=== PATIENT | male | born 1965 | race Hispanic/Latino ===

== ENCOUNTER 2023-09-10 11:57 | Emergency (ER) | payer SELFPAY ==
[2023-09-10 12:02] VITALS: BP 129/94
--- NOTE | 2023-09-10 13:34 | ED.GENMED ---
History of Present Illness
General
Chief Complaint: Musculo-Skeletal Complaint
Source: patient
Time Seen by Provider: 09/10/23 13:02
History of Present Illness
History of Present Illness:
57-year-old male presenting emergency department for evaluation after he injured his left foot/ankle about a week ago while ambulating now noting continued pain and swelling to the foot and ankle. Patient states pain seems to be around the second
and fourth metatarsal and worse while ambulating. Denies any previous history of injury or surgery. No other injuries were sustained in the fall.
Past History
Past History
ED Past Medical History: GERD
ED Past Surgical History: Orthopedic
Social History
Tobacco: Non-smoker
Alcohol: Daily
Drug: None
Personal:
Living: with family
Employment: Employed
Review of Systems
Review of Systems
All Other Systems: ROS reviewed and negative except as documented in HPI and ROS
Phy Exam
Physical Exam
Physical Exam:
GENERAL: Alert , in no apparent distress
EYE: conjunctiva clear
Head: Normocephalic atraumatic
NECK: Supple,
ENT: mmm.
LUNGS: no acute respiratory distress
NEUROLOGICAL: Alert and oriented
SKIN: Warm and dry, skin intact.
MUSCULOSKELETAL: Left lower extremity: Soft tissue swelling along the dorsal aspect of the foot extending towards the distal ankle. There is tenderness over the distal second and third metatarsals but without any breaks in the skin. Extremities
otherwise warm and well-perfused and neurovascularly intact.
PSYCH: Normal and appropriate interaction.
Scores
Heart Failure Risk
Heart Failure Risk Score: Not Applicable
Heart Score for Chest Pain Patients
STEMI patient?: Not applicable
Withdrawal Assessment of Alcohol
Withdrawal Assessment Completed?: Not applicable
Course
Orders/Labs/Results
Orders:
Orders
09/10/23 12:05
CR Ankle - Left Min 3 Views Urgent
Comment:
Reason For Exam: pain/swelling
09/10/23 13:05
CR Foot - Left Min 3 Views Urgent
Comment:
Reason For Exam: ? injury to 2nd/3rd metatarsal
09/10/23 13:33
Crutches-Treatment ONCE
Ortho Boot Left- Treatment ONCE
Short or tall?: Short
Vital Signs
Initial and Last Documented VS:
Initial Vital Signs
Temp Pulse Resp BP Pulse Ox
98.4 F 77 20 129/94 96
09/10/23 12:02 09/10/23 12:02 09/10/23 12:02 09/10/23 12:02 09/10/23 12:02
Last Documented Vital Signs
Temp Pulse Resp BP Pulse Ox
98.4 F 77 20 129/94 96
09/10/23 12:02 09/10/23 12:02 09/10/23 12:02 09/10/23 12:02 09/10/23 12:02
MDM/Problems Addressed
Differential Diagnosis Includes:
Sprain, contusion, fracture
MDM/Problems Addressed:
57-year-old male present emergency department for evaluation of foot/ankle injury from 1 week ago. Continued pain and swelling to come to the ER today. X-ray of the foot and ankle was ordered and shows a fracture of the second and third
metatarsal. Patient be placed in orthopedic boot as well as crutches. Patient does not currently have any insurance so he was provided with information for outpatient medical clinic. Advised patient contact the clinic for an appointment as soon
as possible.
*Radiology
Radiology exam reviewed: preliminary read by ED provider (Fracture of the second and third metatarsals)
*Pulse Oximetry
Patient hypoxic: no
*Critical Care Note
Total Time (30-74mins, 75-104mins- exclusive of procedures): Not Applicable
ED Attending Note
-
Portions of this chart may have been created with voice recognition software.� Occasional wrong word or��sound alike� substitutions may have occurred due to the inherent limitations of voice recognition software.
Discharge Plan
Departure
Patient Disposition: Home (Routine Discharge)
Date of Disposition: 09/10/23
Time of Disposition: 13:34
Patient with high blood pressure during this ER visit?: No
Discharge Problem:
Closed fracture of second metatarsal bone of left foot, Fracture of third metatarsal bone of left foot
Instructions: Foot Fracture (DC)
Prescriptions:
No Action
omeprazole 40 MG capsule,delayed release(DR/EC)
40 mg PO BID Qty: 60 0RF
cyclobenzaprine 10 MG tablet
10 mg PO TIDPRN PRN (Reason: pain) Qty: 12 0RF
Referrals:
[facility] [Outside] (Please call for an appointment NIL[facility])
Sander Nicole DO [Family Provider] -
Interventions
Interventions:
*Risk Screen - Suicide Last Done: 09/10/23 12:02
*General Assessment Last Done: 09/10/23 12:02
*Neglect/Abuse Screening Last Done: 09/10/23 12:02
*Nursing Disposition Last Done: 09/10/23 13:53
ED-Musculoskeletal Assessment Last Done: 09/10/23 12:18
Discharge Date and Time
Discharge Date/Time: 09/10/23 13:53
Print Language: ROMANIAN
== END 2023-09-10 13:53 | disposition home or self-care (01) ==
LOC: EMR 11:57
PROVIDERS: EMERGENCY PHYSICIAN Emergency Medicine; FAMILY PHYSICIAN Family Medicine
DX: S92.322A Displaced fracture of second metatarsal bone, left foot, initial encounter for closed fracture (principal); S92.332A Displaced fracture of third metatarsal bone, left foot, initial encounter for closed fracture; X58.XXXA Exposure to other specified factors, initial encounter; K21.9 Gastro-esophageal reflux disease without esophagitis
CPT/HCPCS: 99283; 73610; 73630

== ENCOUNTER 2023-09-24 20:35 | Inpatient (IN) | payer OTHER, SELFPAY ==
[2023-09-24] VITALS (11 sets, daily range): BP systolic 128–162; BP diastolic 93–110; BMI 27.9
[2023-09-24 14:38] LABS: % Basophils 1.8 % (0-2); % Eosinophils 0.2 % (0-6); % Immature Granulocytes 0.4 % (0-0.5); % Lymphocytes 27.6 % (20.5-51.1); % Monocytes 16.4 % (1.7-9.3); % Neutrophils 53.6 % (42.2-75.2); Absolute Basophils 0.2 10^3/uL (0-0.2); Absolute Lymphocytes 2.3 10^3/uL (1.2-3.4); Absolute Monocytes 1.4 10^3/uL (0.1-0.6); Absolute Neutrophils 4.4 10^3/uL (1.4-6.5); Hematocrit 39.1 % (39.0-52.0); Hemoglobin 13.6 g/dL (13.0-18.0); Mean Corp Hgb Conc. 34.8 g/dL (33.0-37.0); Mean Corpuscular Hgb 29.2 pg (27.0-31.0); Mean Corpuscular Volume 84.1 fL (80.0-94.0); Mean Platelet Volume 8.9 fL (7.4-10.4); Nucleated Red Blood Cells % 0 % (-); Platelet Count 280 10^3/uL (130-400); Red Blood Cell Count 4.65 10^6/uL (4.70-6.10); Red Cell Dist. Width 18.1 % (11.5-14.5); White Blood Cell Count 8.2 10^3/uL (4.8-10.8)
[2023-09-24 15:22] LABS: ALT (SGPT) 57 U/L (0-50); AST (SGOT) 230 U/L (17-59); Albumin 4.7 g/dl (3.5-5.0); Alcohol 34 mg/dl; Alkaline Phosphatase 198 U/L (38-126); Blood Urea Nitrogen 5 mg/dl (9-20); Calcium 9.7 mg/dl (8.4-10.2); Glucose 112 mg/dl (70-99); Total Protein 8.4 g/dl (6.3-8.2); eGFR > 60.00
[2023-09-24 15:51] LABS: Carbon Dioxide 21 mmol/L (22-30); Chloride 102 mmol/L (98-107); Potassium 4.3 mmol/L (3.5-5.1); Sodium 138 mmol/L (135-145)
--- NOTE | 2023-09-24 16:38 | ED.GENMED ---
History of Present Illness
General
Chief Complaint: Change in Mental Status
Time Seen by Provider: 09/24/23 16:05
History of Present Illness
History of Present Illness:
57-year-old male with history of chronic to the emergency department evaluation of increased confusion and lethargy for the past 1 to 2 weeks. Symptoms began after a family libertarian, patient states that he was intoxicated but conversant, feels as
though he may have been given substance to take and abruptly from that point on has been increasingly confused and fatigued. Patient drink least 12 beers and has not been sober for years.
Past History
Past History
ED Past Medical History: GERD
ED Past Surgical History: Orthopedic
Social History
Tobacco: Non-smoker
Alcohol: Daily
Drug: None
Personal:
Living: with family
Employment: Employed
Review of Systems
Review of Systems
Allergies reviewed?: Yes
All Other Systems: ROS reviewed and negative except as documented in HPI and ROS
Phy Exam
Physical Exam
Physical Exam:
GEN: Well appearing, NAD, WDWN
Eyes: PERRLA, EOMs intact, no scleral icterus
HENT: NCAT, oral mucosa moist
Lungs: CTAB, no wheezes, rales, rhonchi, normal chest wall excursion
Cardiac: Tachycardic and irregular, no murmur
Abdomen: S, NT, ND, NABS, no masses or hepatosplenomegaly
Neuro: Alert, follows commands, disoriented to time but oriented to self and place. Generalized extremity tremors noted at rest, no asterixis
MSK: No gross deformity or ecchymosis. No edema. No digital clubbing
Skin: No rashes, petechiae. Normal color, no pallor or jaundice.
Psych: Calm, cooperative, proper hygiene
Course
Orders/Labs/Results
Orders:
Orders
09/24/23 14:32
Alcohol Urgent
CMP [Comprehensive Metabolic Panel] Urgent
Complete Blood Count/With Diff Urgent
TSH Reflex To Free T4 Urgent
Comment: TSH REFLEX ADDED ON BY FLOOR 4:30PM 09-24-23
09/24/23 16:37
Add On- LAB Urgent
Tests Added?: tsh w/ reflex
Electrocardiogram (*1) Urgent
Reason for Study: Tachycardia
EKG- Treatment ONCE
09/24/23 16:44
Add On- LAB Urgent
Tests Added?: ammonia
09/24/23 17:43
Lactated Ringers [Lr] 1,000 ml IV BOLUS
Magnesium Sulfate 2 Gram/50 ml [Magnesium Sulfate] 2 gram in 50 ml IV NOW
Metoprolol [Lopressor] 5 mg IV NOW STA
09/24/23 17:58
Ammonia Urgent
09/24/23 18:11
CT Head W/o Iv Contrast Urgent
Comment:
Reason For Exam: confusion
09/24/23 19:25
FOLic ACID [Folvite] 1 mg PO NOW STA
09/24/23 19:54
Thiamine Injection 500 mg 0.9% Sodium Chloride 250 ml [Nss] 250 ml IV NOW
09/24/23 19:57
Lorazepam [Ativan] 2 mg IV NOW STA
09/24/23 20:26
Admit/Transfer Patient As Directed
Co-Sign Provider:
Level of Care: Inpatient admission
Assign to:: Telemetry
Physician / Group: willian
Diagnosis: alcohol withdrawal
Reason for Telemetry: Arrhythmia
Date to Stop Telemetry: 09/27/23
Time to Stop Telemetry: 11:00
Reason for Hospitalization: alcohol withdrawal
Expected length of stay greater than two midnights?: Yes
ELOS- Estimated Length of Stay in days: 2
I certify the patient meets the requirements for IP care: Yes
Code Status As Directed
Resuscitation Status: Full Code
09/24/23 20:29
Urine Drug Abuse Screen Urgent
09/27/23 11:00
DC Protocol for Telemetry ONCE
Abnormal Lab Results
09/24/23 09/24/23
14:32 17:58
RBC 4.65 L 10^6/uL
(4.70-6.10)
RDW 18.1 H %
(11.5-14.5)
Absolute Monos (auto) 1.4 H 10^3/uL
(0.1-0.6)
Monocytes % 16.4 H %
(1.7-9.3)
Carbon Dioxide 21 L mmol/L
(22-30)
BUN 5 L mg/dl
(9-20)
Creatinine 0.6 L mg/dL
(0.7-1.3)
Glucose 112 H mg/dl
(70-99)
AST 230 H U/L
(17-59)
ALT 57 H U/L
(0-50)
Alkaline Phosphatase 198 H U/L
(38-126)
Ammonia < 9 L umol/L
(9-30)
Total Protein 8.4 H g/dl
(6.3-8.2)
09/24/23 14:32
09/24/23 14:32
Vital Signs
Initial and Last Documented VS:
Initial Vital Signs
Temp Pulse Resp BP Pulse Ox
98.0 F 65 16 145/98 95
09/24/23 14:25 09/24/23 14:25 09/24/23 14:25 09/24/23 14:25 09/24/23 14:25
Last Documented Vital Signs
Temp Pulse Resp BP Pulse Ox
98.0 F 103 17 130/96 95
09/24/23 14:25 09/24/23 21:45 09/24/23 21:45 09/24/23 21:30 09/24/23 21:30
MDM/Problems Addressed
MDM/Problems Addressed:
Patient certainly presents with alcohol withdrawal however would not explain his persistent confusion and abnormal behavior. I suspect he is developing Warnicke's encephalopathy given his chronic alcohol misuse. He does not have obvious nystagmus
some of his wandering to be explained by alcohol withdrawal. Thus we will admit him to the hospital service for further evaluation and management. High-dose IV thiamine given in the emergency department
*Critical Care Note
Total Time (30-74mins, 75-104mins- exclusive of procedures): Not Applicable
ED Attending Note
-
Portions of this chart may have been created with voice recognition software.� Occasional wrong word or��sound alike� substitutions may have occurred due to the inherent limitations of voice recognition software.
Discharge Plan
Departure
Patient Disposition: Admit
Date of Disposition: 09/24/23
Time of Disposition: 19:59
Admit to: Med/Surg
Presentation/result/management discussed w/ accepting MD/DO: Hospitalist
Discharge Problem:
Acute encephalopathy, Chronic alcohol abuse
Interventions
Interventions:
*Risk Screen - Suicide Last Done: 09/24/23 17:43
*General Assessment Last Done: 09/24/23 14:25
*Neglect/Abuse Screening Last Done: 09/24/23 16:34
ED- Fall Risk Assessment Last Done: 09/24/23 16:33
*ED COVID-19 Vaccine History Last Done: 09/24/23 14:25
ED- Pulmonary Assessment Last Done: 09/24/23 17:44
ED- Neurological Assessment Last Done: 09/24/23 16:33
ED- Cardiac Assessment Last Done: 09/24/23 17:44
ED Swallowing Screen Last Done: 09/24/23 17:44
[2023-09-24 18:25] LABS: Ammonia < 9 umol/L (9-30)
[2023-09-24] MEDS: LOPRESSOR 5 MG IV (18:35)
[2023-09-24] MEDS: LR 1000 IV (18:36)
[2023-09-24] MEDS: MAGNESIUM SULFATE 50 IV (18:41)
[2023-09-24 19:19] LABS: TSH Reflex To Free T4 1.53 uIU/ml (0.47-4.68)
--- NOTE | 2023-09-24 20:29 | HPS.HSE ---
Family Physician
-
Family Physician: Sander Nicole
Chief Complaint
-
confusion
History of Present Illness
57-year-old [place]guill[place]-speaking male past medical history of alcohol use disorder, marijuana use upper GI bleeding secondary to peptic ulcer disease/duodenal ulcer/gastritis, marijuana use, presenting for increased confusion and lethargy for the past 1
to 2 weeks. History is obtained from patient's daughter who speaks Rwandan.
Patient's daughter states that patient is unreliable historian and does not tell the truth.
Patient normally drinks 24 beers per day which he last drank yesterday. He attended a democrat last week and he was caught by his brother smoking or drug. Patient refused to tell his family what drug he used although he does have a history of smoking
marijuana in the past. After the democrat family found him altered and confused in a different way from when he uses marijuana usually.
Patient is not having any nausea or vomiting or diarrhea or abdominal pain. He eats very minimally so that he can drink more alcohol. He has been very shaky, and anxious. Patient's states that she notices dark blood in the toilet after
patient has used the bathroom although patient is trying to hide this.
Patient was last admitted in 2013 at which time he had upper GI bleeding secondary to duodenal ulcer/peptic ulcer/gastritis on EGD. He never followed up with GI afterwards.
Medical History
Past Medical History
Past Medical History: Reports Other (alcohol use disorder, marijuana use upper GI bleeding secondary to peptic ulcer disease/duodenal ulcer/gastritis, marijuana use)
Past Surgical History: Reports Orthopedic
Social History
Tobacco: Non-smoker
Alcohol: Daily
Drug: Marijuana
Family History
Family History: Not pertinent
Allergies / Home Medications
Allergies reflects when Allergies were last updated in [facility].
Home Medications with original date entered in [facility]
Allergy/Medication List:
Allergies
Allergy/AdvReac Type Severity Reaction Status Date / Time
No Known Allergies Allergy Verified 09/24/23 14:28
Home Medications
No Meds [No Current Medications] 09/24/23
Review of Systems
-
History Source: Patient
A 12 point ROS was completed and negative except as noted: Yes
Constitutional: Reports No Symptoms
EENT: Reports No Symptoms
Respiratory: Reports No Symptoms
Cardiac: Reports No Symptoms
Abdomen/GI: Reports See HPI
: Reports No Symptoms
Musculoskeletal: Reports No Symptoms
Skin: Reports No Symptoms
Neurological: Reports No Symptoms
Endocrine: Reports No Symptoms
Hematologic/Lymphatic: Reports No Symptoms
Psych: Reports No Symptoms
Physical Exam
Vital Signs
Vital Signs
Temp Pulse Resp BP Pulse Ox
98.0 F 102 17 162/104 98
09/24/23 14:25 09/24/23 19:45 09/24/23 19:45 09/24/23 19:30 09/24/23 19:45
Physical Exam
General: Well Developed, Well Nourished and No Apparent Distress
HEENT: NormoCephalic, Moist mucous membranes and Atraumatic
Respiratory: Clear
Cardiac: S1/S2 and Regular Rhythm; No Murmur or Rub
GI: Soft, Non Tender, Non Distended and Normal Bowel Sounds; No Organomegaly
Rectal: Deferred by Provider
Musculoskeletal: No Clubbing, No Cyanosis and No Edema
Skin: No Rash
Neuro: Nonfocal/grossly intact
Laboratory Results
-
09/24/23 14:32
09/24/23 14:32
Laboratory Results
Total Bilirubin 1.0 mg/dl (0.2-1.3) 09/24/23 14:32
AST 230 U/L (17-59) H 09/24/23 14:32
ALT 57 U/L (0-50) H 09/24/23 14:32
Alkaline Phosphatase 198 U/L (38-126) H 09/24/23 14:32
Data Reviewed
-
Lab Data: Labs Reviewed by me
Old Records: Reviewed
Impression/Plan
-
IMPRESSION:
PLAN:
# Alcohol withdrawal/possible Wernicke's encephalopathy
# Alcohol use disorder
-CT head shows no evidence of intracranial abnormality
-Alcohol level 34
-Thiamine and folate
-IV fluids
-Alcohol withdrawal protocol
-Check UDS given recent drug use at democrat
# Dark stools likely upper GI bleeding secondary to gastric/duodenal ulcer/gastritis secondary to alcohol use
-Hemoglobin stable at 13.6
-Clear liquid diet
-IV Protonix 40 twice daily
-Last EGD/colonoscopy in 2013, patient due for repeat scoping this year as per GI note
-GI consulted
# Transaminitis secondary to alcohol use
-Continue to monitor
#Marijuana use
Full code
DVT prophylaxis�SCDs
Clear liquid diet
[2023-09-24] MEDS: ATIVAN 2 MG IV (20:41)
[2023-09-24] MEDS: FOLVITE 1 MG PO (20:41)
[2023-09-24] MEDS: THIAMINE INJECTION 255 MG IV (20:46)
[2023-09-25] MEDS: ATIVAN 1 MG PO ×4 (00:13→16:36)
--- NOTE | 2023-09-25 00:15 | PTCARENOTE ---
Addendum entered by Ramila Pina RN 09/25/23 07:32:
Patient's HR 100-120s, up to 140s-150s with ambulation. Tele monitor showing afib. QA TESTER made aware, 5mg IV lopressor ordered and given at 0209. EKG confirming afib with RVR, PVCs, and BBB. Cardiology cx also added for morning. Plan of care ongoing.
Original Note:
Received patient from ED via stretcher. Patient ambulated from stretcher to bed with assistance. Patient is primarily [place] speaking, daughter at bedside who speaks Hebrew to aid in translation. AAOx2, confused and forgetful. Bed alarm intact.
MSAS 6, PO ativan given per protocol. Oriented patient to room and placed call silver within reach.
[2023-09-25] MEDS: NSS 1000 IV ×3 (00:20→17:30)
[2023-09-25] MEDS: NSS (PRESERVATIVE FREE) 10 ML IV ×2 (00:20→07:58)
[2023-09-25] MEDS: PROTONIX IV 40 MG IV ×2 (00:20→07:58)
[2023-09-25] MEDS: LOPRESSOR 5 MG IV (02:09)
--- NOTE | 2023-09-25 02:18 | W.PN.UPDATE ---
Update Note
Progress Note Update
Nursing reporting patient in Afib RVR with no known history.
Plan:
- STAT EKG
- Metoprolol 5mg IV 1x now
- Cardiology consult
[2023-09-25 03:15] VITALS: BP 147/105
[2023-09-25 05:13] LABS: Amphetamines Negative (Negative); Barbiturates Negative (Negative); Benzodiazepines Positive (Negative); Buprenorphine Negative (Negative); Cocaine Negative (Negative); Marijuana Positive (Negative); Methadone Negative (Negative); Methamphetamines Negative (Negative); Opiates Negative (Negative); Phencyclidine Negative (Negative); Tricyclic Antidepressants Negative (Negative)
[2023-09-25 07:32] VITALS: BP 145/102
[2023-09-25 07:43] LABS: % Basophils 1.6 % (0-2); % Eosinophils 0.7 % (0-6); % Immature Granulocytes 0.3 % (0-0.5); % Lymphocytes 33.3 % (20.5-51.1); % Monocytes 17.8 % (1.7-9.3); % Neutrophils 46.3 % (42.2-75.2); Absolute Basophils 0.1 10^3/uL (0-0.2); Absolute Eosinophils 0.1 10^3/uL (0-0.7); Absolute Lymphocytes 2.4 10^3/uL (1.2-3.4); Absolute Monocytes 1.3 10^3/uL (0.1-0.6); Absolute Neutrophils 3.3 10^3/uL (1.4-6.5); Hematocrit 38.3 % (39.0-52.0); Hemoglobin 13.4 g/dL (13.0-18.0); Mean Corpuscular Hgb 29.5 pg (27.0-31.0); Mean Corpuscular Volume 84.2 fL (80.0-94.0); Mean Platelet Volume 9.4 fL (7.4-10.4); Nucleated Red Blood Cells % 0 % (-); Platelet Count 252 10^3/uL (130-400); Red Blood Cell Count 4.55 10^6/uL (4.70-6.10); Red Cell Dist. Width 17.3 % (11.5-14.5); White Blood Cell Count 7.1 10^3/uL (4.8-10.8)
[2023-09-25] MEDS: THIAMINE INJECTION 200 MG IV ×2 (07:57→16:36)
[2023-09-25] MEDS: FOLVITE 1 MG PO (07:57)
[2023-09-25] MEDS: FLUSH (NSS) 1 FLUSH IV ×2 (07:58→16:37)
[2023-09-25 08:19] LABS: ALT (SGPT) 46 U/L (0-50); AST (SGOT) 139 U/L (17-59); Albumin 4.1 g/dl (3.5-5.0); Alkaline Phosphatase 196 U/L (38-126); Blood Urea Nitrogen 5 mg/dl (9-20); Carbon Dioxide 22 mmol/L (22-30); Chloride 104 mmol/L (98-107); Estimated Creatinine Clearance > 125 ml/min; Glucose 111 mg/dl (70-99); Potassium 4.2 mmol/L (3.5-5.1); Sodium 134 mmol/L (135-145); Total Bilirubin 1.7 mg/dl (0.2-1.3); Total Protein 7.6 g/dl (6.3-8.2); eGFR > 60.00
[2023-09-25 08:32] LABS: Fentanyl, Urine Negative (Negative)
--- NOTE | 2023-09-25 08:33 | CON.CAR ---
Addendum entered and electronically signed by Rambo Davila DO 09/25/23 17:12:
I saw and evaluated the patient. I reviewed the resident�s note and agree with findings and plan as documented in the resident�s note.
Impression:
Atrial fibrillation with rapid ventricular response, new onset.
Alcohol use disorder with possible withdrawal
Change in mental status secondary to above
History of GI bleeding
Plan:
Rate control strategy for now with labetalol 25 mg twice a day. Monitor heart rate and blood pressure and titrate as necessary..
[id number] score of 1. Consideration for aspirin once improved from GI/alcohol standpoint.
Check echo to evaluate for structural heart disease.
GI evaluation ongoing. Continue supportive care.
Continue alcohol withdrawal protocol.
Continue telemetry.
Original Note:
Consultation
Consultation Request
Date/Time Consultation Requested: 09/25/23
Date/Time Consultation Performed: 09/25/23
Requesting Provider:
Performing Provider:
Reason for Consultation: Atrial Fibrillation
Medical History
-
Chief Complaint: Atrial Fibrillation,Alcohol Withdrawal
History of Present Illness:
This is a 57 year old male patient with PMH of alcohol use disorder, upper GI bleeding secondary to peptic ulcer disease/duodenal ulcer/gastritis who presented to the ER with altered mental status and lethargy for the past week. Previously in the ER
he was accompanied by his daughter who helped translate for the patient who is mainly Afghan-speaking which somewhat limited history. He states that he was at a democrat where he was partaking in usage of marijuana along with alcohol and later found
himself being woken up and found by his family. At that time and thereafter he denies any symptoms of vomiting, palpitations, chest pain, nausea or dizziness. He states that he drinks daily with around 12 beers a day which is in contrast with
history daughter gave in ER stating 24 beers a day. He denies ever being diagnosed with HTN. Patient does have shaking of hands at the time of this consultation.
Past Medical History
Past Medical History: Other (alcohol use disorder, marijuana use upper GI bleeding secondary to peptic ulcer disease/duodenal ulcer/gastritis, marijuana use)
Past Surgical History: Orthopedic
Social History
Tobacco: Non-Smoker
Alcohol: Daily
Drug: Marijuana
Personal:
Living: With Family
Family History
Family History: Reviewed & Not Pertinent
Allergies / Home Medications
Allergy/AdvReac Type Severity Reaction Status Date / Time
No Known Allergies Allergy Verified 09/24/23 14:28
�Medication �Instructions �Recorded �Confirmed �Type
No Meds [No Current Medications] 09/24/23 09/24/23 History
Review of Systems
-
Constitutional: No Symptoms
Cardiac: Chest Pain (none), Diaphoresis (none) and Palpitations (none)
Abdomen/GI: No Symptoms
Musculoskeletal: No Symptoms
Skin: No Symptoms
Endocrine: No Symptoms
Hematologic/Lymphatic: No Symptoms
Physical Exam
Vital Signs
Temp Pulse Resp BP Pulse Ox
98.8 F 102 20 147/105 95
09/25/23 03:15 09/25/23 03:15 09/25/23 03:15 09/25/23 03:15 09/25/23 08:00
Lab Results
09/25/23 07:03
09/25/23 07:03
Physical Exam
General: No Apparent Distress
HEENT: Normocephalic
Respiratory: Clear
Cardiac: S1/S2, Regular Rhythm and Other (tachy)
Impression / Plan
-
Impression:This is a 57 year old male patient with PMH of alcohol use disorder, upper GI bleeding secondary to peptic ulcer disease/duodenal ulcer/gastritis who presented to the ER with altered mental status and lethargy for the past week.
Assessment:
Alcohol use disorder
Hx of upper GI bleed duodenal ulcer, gastritis, Elizabeth-Cadet tear�EGD 2013
Hx of chronic marijuana use
Plan:
-Continue alcohol withdrawal protocol, IV fluids management
� EKG today: A-fib with RVR
� [id number] score 1, will hold off on anticoagulation with hx of GI bleed and patient's history of noncompliance, possible ASA treatment once stable
� Initiated labetalol 25 mg twice daily for hypertension
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
� Continue supportive care, appreciate GI consult
--- NOTE | 2023-09-25 08:58 | CON.GI ---
Medical History
Chief Complaint / HPI
Chief Complaint: Confusion
History of Present Illness:
57yo M with PMH of alcohol use disorder, upper GI bleeding secondary to peptic ulcer disease/duodenal ulcer/gastritis (2013) who presented with altered mental status and worsening confusion for the past week. History is somewhat limited due to
suboptimal Faroese-speaking ability of patient. In the ER, patient was oriented to time and person, but not place. Patient is alert and oriented at the time of this consultation. Source of history is patient and chart review.
Patient started developing confusion about a week ago after attending a family libertarian. He states he was intoxicated with alcohol during the libertarian and does not have a clear memory of taking any drugs. Patient lives with family and after the libertarian, his
children found him confused and disoriented and weak. 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 He also occasionally smokes marijuana. Patient denies any nausea, vomiting, abdominal pain, fevers/ chills. He has not
noticed any change in the color of his stools or any bleeding. Patient does not report unsteady gait and any recent problems with keeping his balance. States his walking difficulty is due to recent metatarsal fractures (2 weeks ago). He does mention
attempts to decrease his alcohol intake to 7-8 beers daily, but has not been successful.
Past Medical History
Past Medical History: GERD and Other (alcohol use disorder, PUD, gastritis)
Social History
Tobacco: Non-Smoker
Alcohol: Chronic Alcoholic
Drug: Marijuana
Personal:
Living: With Family
Employment: Employed
Allergies / Home Medications
Allergy/AdvReac Type Severity Reaction Status Date / Time
No Known Allergies Allergy Verified 09/24/23 14:28
�Medication �Instructions �Recorded
No Meds [No Current Medications] 09/24/23
Review of Systems
-
History Source: Patient
Constitutional: Reports Fatigue
Vital Signs
Temp Pulse Resp BP Pulse Ox
99.4 F 110 22 145/102 95
09/25/23 07:32 09/25/23 07:32 09/25/23 07:32 09/25/23 07:32 09/25/23 08:00
Physical Exam
Exam
General: Comfortable
HEENT: Anicteric and Other (horizontal nystagmus)
Respiratory: Clear
Cardiac: S1/S2, Regular Rhythm and Other (tachycardia)
GI: Non Tender, Normal Bowel Sounds and Distended
Skin: Warm and Dry
Neuro: Awake, Alert, Oriented, AO x 3 and Tremors (resting hand tremor)
Psych: Other (Patient is tearful at times)
Results
WBC 7.1 10^3/uL (4.8-10.8) 09/25/23 07:03
Hgb 13.4 g/dL (13.0-18.0) 09/25/23 07:03
Hct 38.3 % (39.0-52.0) L 09/25/23 07:03
MCV 84.2 fL (80.0-94.0) 09/25/23 07:03
Plt Count 252 10^3/uL (130-400) 09/25/23 07:03
Absolute Neuts (auto) 3.3 10^3/uL (1.4-6.5) 09/25/23 07:03
Sodium 134 mmol/L (135-145) L 09/25/23 07:03
Potassium 4.2 mmol/L (3.5-5.1) 09/25/23 07:03
Chloride 104 mmol/L (98-107) 09/25/23 07:03
Carbon Dioxide 22 mmol/L (22-30) 09/25/23 07:03
BUN 5 mg/dl (9-20) L 09/25/23 07:03
Creatinine 0.5 mg/dL (0.7-1.3) L 09/25/23 07:03
Calcium 9.0 mg/dl (8.4-10.2) 09/25/23 07:03
Total Bilirubin 1.7 mg/dl (0.2-1.3) H 09/25/23 07:03
AST 139 U/L (17-59) H 09/25/23 07:03
ALT 46 U/L (0-50) 09/25/23 07:03
Alkaline Phosphatase 196 U/L (38-126) H 09/25/23 07:03
Diagnostic Image Results:
CT Head W/o Iv Contrast (09/24/23):
No evidence of acute intracranial abnormality.
Mild to moderate atrophy with particularly prominent subarachnoid cisterns overlying frontal lobes. The degree of atrophy is greater than generally expected for a 57-year-old patient.
Prior GI Procedures:
EGD (07/29/13):
chronic active gastritis with Helicobacter pylori
Assessment / Plan
-
57yo M with PMH of alcohol use disorder who presented to the ED with confusion and lethargy. Patient is currently oriented (AO x3) and does not show any signs of agitation. He has not had any n/v since admission. His last bowel movement was this
morning which was loose. Patient is on MSAS protocol and has received 3mg of Ativan since admission. UDS was positive only for marijuana and BZD. LFT consistent with chronic alcoholic hepatits.
Problem list:
# Alcohol use disorder
# Alcohol withdrawal/possible Wernicke's encephalopathy
# Chronic alcoholic hepatitis
Plan:
- Continue thiamine and folate
- Continue IV fluids
- Continue MSAS protocol; Ativan as needed
- May advance diet if patient can tolerate
- Continue to monitor vital signs and mental status for any acute signs of worsening
- Continue to monitor CBC, LFTs for any acute signs of worsening
-
-
Thank you for consultation and allowing me to participate in the patient's care. Please call the clay preparation supervisor GI physician during the after hours with any questions or concerns.
[2023-09-25 11:26] VITALS: BP 142/106
[2023-09-25] MEDS: TRANDATE 25 MG PO (12:35)
[2023-09-25 14:06] LABS: Hepatitis B Surface Antigen Negative (Negative)
[2023-09-25 14:23] LABS: Hepatitis B Core Ab, Total Reactive (Negative); Hepatitis B Surface Antibody Negative; Hepatitis C Antibody Negative (Negative)
[2023-09-25 15:03] LABS: Hepatitis A Antibody, Total Positive (Negative)
--- NOTE | 2023-09-25 15:06 | CM ---
Multiple attempts to meet [facility] have been unsuccessful. CM advised he has been off the floor for testing.
CM to follow up to complete assessment when pt is available.
--- NOTE | 2023-09-25 15:16 | W.PN.HOSP.TC ---
Today's Communication/Plan
-
Continue monitoring for alcohol withdrawal
Trend hepatic transaminases
Echocardiogram for new A-Fib, no need for anticoagulation right now
Assessment / Plan
Assessment / Plan
Physical Exam
General: Not in acute distress
HEENT: Normocephalic
Respiratory: Clear to Auscultation Bilaterally
Cardiac: S1/S2 and Regular Rhythm
GI: Soft, Non Tender, Non Distended and Normal Bowel Sounds
Musculoskeletal: No Cyanosis and No Edema
Skin: Warm. Dry.
Neuro: Alert. Awake. Nonfocal/grossly intact
Assessment/Plan
# Alcohol withdrawal/possible Wernicke's encephalopathy
# Alcohol use disorder
# Elevated Liver Enzymes Secondary to Alcohol abuse
-CT head showed no evidence of intracranial abnormality
-Alcohol level 34
-Thiamine and folate
-IV fluids
-Alcohol withdrawal protocol
-Trend transaminases, check abdominal ultrasound, and check hepatitis panel
-Checked UDS given recent drug use at [facility]: UDS positive for benzos and marijuana
#Atrial Fibrillation with RVR
- Cardiology consulted, evaluation and recommendations appreciated
- Given [id number] score is 1, no plans for anticoagulation given history of gastrointestinal bleed and patient's history of noncompliance, possible Aspirin treatment once stable
- Initiated labetalol 25 mg twice daily for hypertension
- Echo ordered
# Dark stools likely upper GI bleeding secondary to gastric/duodenal ulcer/gastritis secondary to alcohol use
-Hemoglobin stable
-Clear liquid diet
-IV Protonix 40 twice daily
-Last EGD/colonoscopy in 2013, patient due for repeat scoping this year as per GI note
-GI consulted, recommendations and evaluations appreciated
# Transaminitis secondary to alcohol use
-Continue to monitor
#Marijuana use
Full code
DVT prophylaxis�SCDs
Clear liquid diet
Anticipated Discharge: > 48 hours
Subjective/Interval History
-
Date of Service: September 25, 2023
Patient was seen and examined. He denied any new complaints or symptoms.
Objective Data
-
Labs:
Laboratory Results
09/25/23
07:03
WBC 7.1
Hgb 13.4
Hct 38.3 L
Plt Count 252
Sodium 134 L
Potassium 4.2
Chloride 104
Carbon Dioxide 22
BUN 5 L
Creatinine 0.5 L
Glucose 111 H
Calcium 9.0
Total Bilirubin 1.7 H
AST 139 H
ALT 46
Alkaline Phosphatase 196 H
Vital Signs:
Vital Signs
Temp Pulse Resp BP Pulse Ox
98.2 F 120 26 142/106 98
09/25/23 11:26 09/25/23 12:35 09/25/23 11:26 09/25/23 12:35 09/25/23 11:26
I&O
09/24/23 09/25/23 09/26/23
06:59 06:59 06:59
Intake Total 100 / 100
Balance 100 / 100
[2023-09-25 15:48] LABS: Hepatitis A IgM Antibody Negative (Negative); Hepatitis B Core Ab, IgM Negative (Negative)
[2023-09-25 15:53] VITALS: BMI 28.8
[2023-09-25 16:37] VITALS: BP 135/93
--- NOTE | 2023-09-25 17:43 | W.PN.UPDATE ---
Update Note
Progress Note Update
patient expressed desire to leave. all risks associated with leaving AMA discussed and patient still wants to leave AMA. Form signed. Primary attending notified.
--- NOTE | 2023-09-25 17:46 | PTCARENOTE ---
Patient states he is leaving AMA. PT removed IV and heart monitor. Pt states he wants to walk home. Pt agitated and uncooperative. This nurse notified family. Family on their way to pick him up. Plan of care ongoing.
--- NOTE | 2023-09-25 18:13 | PTCARENOTE ---
Pt. signed out AMA-Patient taken in wheelchair to front door given walking boot-family to transport home. and male clark driver arrived to mixing picker tender patient- got out of car-instructed male clark driver to lock doors. speaking to patient in
[place]-raised voice. Patient pulling on rear passenger side door handle-door locked. [place]i speaking Male clark driver asked this RN if patient is 'ok to go' Explained to male clark driver that patient left AMA-we can not hold him in the hospital against his
will. The patient walked away towards parking garage. Male clark driver out of car following patient across parking lot. Nursing lead burner supervisor made aware. Patient's daughter called station looking for update on situation. Daughter made aware that
patient had signed out AMA. If patient wishes to seek medical treatment he must go back through the ED.
== END 2023-09-25 18:10 | disposition left against medical advice (07) | DRG 894 ==
LOC: 4 EAST ACU 20:35
PROVIDERS: Physician Assistant; ADMITTING PHYSICIAN Hospitalist; ATTENDING PHYSICIAN Hospitalist; CONSULT PHYSICIAN Internal Medicine; EMERGENCY PHYSICIAN Emergency Medicine; FAMILY PHYSICIAN Family Medicine; OTHER PHYSICIAN Nuclear Medicine Nuclear Cardiology
DX: F10.239 Alcohol dependence with withdrawal, unspecified (principal); K27.4 Chronic or unspecified peptic ulcer, site unspecified, with hemorrhage; E51.2 Wernicke's encephalopathy; K21.9 Gastro-esophageal reflux disease without esophagitis; F10.229 Alcohol dependence with intoxication, unspecified; F12.90 Cannabis use, unspecified, uncomplicated; K29.20 Alcoholic gastritis without bleeding; K29.50 Unspecified chronic gastritis without bleeding; R53.83 Other fatigue; R74.01 Elevation of levels of liver transaminase levels; Y90.1 Blood alcohol level of 20-39 mg/100 ml; R26.2 Difficulty in walking, not elsewhere classified; S92.309A Fracture of unspecified metatarsal bone(s), unspecified foot, initial encounter for closed fracture; K70.10 Alcoholic hepatitis without ascites; I48.91 Unspecified atrial fibrillation; Z53.29 Procedure and treatment not carried out because of patient's decision for other reasons; Z87.19 Personal history of other diseases of the digestive system; Z91.199 Patient's noncompliance with other medical treatment and regimen due to unspecified reason
CPT/HCPCS: 70450; 76700; 80053; 80306; 80307; 82077; 82140; 84443; 85025; 86704; 86705; 86706; 86708; 86709; 86803; 87340; 93005; 93306; 93975; 96365; 96375; 99285

== ENCOUNTER 2023-09-25 18:17 | Emergency (ER) | payer OTHER, SELFPAY ==
[2023-09-25 18:32] VITALS: BP 142/95
--- NOTE | 2023-09-25 20:24 | ED.GENMED ---
History of Present Illness
General
Chief Complaint: Change in Mental Status
Source: patient and family
Exam Limitations: none
Time Seen by Provider: 09/25/23 19:58
History of Present Illness
History of Present Illness:
57-year-old male was recently admitted for confusion and alcohol intoxication and withdrawal symptoms. Patient left AMA about 2 hours prior to ER arrival. He had had an echocardiogram done earlier and an ultrasound done earlier. Per the family
they were planning on discharging him tomorrow. Patient did tell his family he did want to go drink beer currently. He has no specific medical complaints denying chest pain shortness of breath headache trauma etc.
Past History
Past History
ED Past Medical History: Arrthythmia and GERD
ED Past Surgical History: Orthopedic
Social History
Tobacco: Non-smoker
Alcohol: Daily
Drug: None
Personal:
Living: with family
Employment: Employed
Review of Systems
Review of Systems
All Other Systems: Not applicable
Constitutional: Denies fever
Respiratory: Reports no symptoms
Cardiac: Reports no symptoms
ABD/GI: Reports no symptoms
Phy Exam
Physical Exam
Physical Exam:
GENERAL: Alert and oriented in no apparent distress
EYE: Orbits normal.
NECK: Supple, no thyroid palpable
ENT: Pharynx without erythema
CARDIAC: Regular rate and rhythm without any obvious murmurs.
LUNGS: Clear breath sounds,normal
ABDOMEN: Soft, without focal tenderness or distention
NEUROLOGICAL: Alert and oriented except for the year which family states he would not normally know, cranial nerves II through XII intact. Speech normal. Gait normal. No obvious tremor. No flap.
SKIN: Warm and dry, no rash or lesion, no discoloration, skin intact.
MUSCULOSKELETAL: No edema,no deformity.Good color
PSYCH: Normal and appropriate interaction.
Course
Orders/Labs/Results
Orders:
Orders
09/25/23 20:10
EKG [Electrocardiogram (*1)] Urgent
Reason for Study: Atrial Fibrillation
EKG- Treatment ONCE
Vital Signs
Initial and Last Documented VS:
Initial Vital Signs
Temp Pulse Resp BP Pulse Ox
98 F 77 18 142/95 98
09/25/23 18:32 09/25/23 18:32 09/25/23 18:32 09/25/23 18:32 09/25/23 18:32
Last Documented Vital Signs
Temp Pulse Resp BP Pulse Ox
98 F 77 18 142/95 98
09/25/23 18:32 09/25/23 18:32 09/25/23 18:32 09/25/23 18:32 09/25/23 18:32
*Pulse Oximetry
Patient hypoxic: no
*EKG
Interpretation: abnormal
Comparison EKG: no changes
Heart Rate: 73
Rate: normal
Rhythm: sinus
[place]: normal axis
Interval: normal interval
QRS Pattern: right bundle branch block
Ischemia: no ischemia
*Critical Care Note
Total Time (30-74mins, 75-104mins- exclusive of procedures): Not Applicable
Data Reviewed
Review of Other/Old Records Reveals: Labs, Records, Radiology Studies, Testing and Other (Echocardiogram)
Update Note
Update Note:
Patient's previous records were reviewed extensively. Hemoglobin is stable. Platelets stable. White count stable. Electrolytes stable. Minimal LFT elevation that is the same or improving ammonia negative yesterday
abdominal ultrasound shows mild hepatomegaly some cirrhosis low flow in the main portal vein. Echocardiogram stable. EF 50-55.
I see no reason for readmission at this time. EKG was done that showed a normal sinus rhythm with a right bundle branch block. He is fully awake alert and oriented. He is not in acute withdrawal at this time. Multiple times I asked him if he
wants help for his alcohol issues. He does not. Family is aware.
ED Attending Note
-
Portions of this chart may have been created with voice recognition software.� Occasional wrong word or��sound alike� substitutions may have occurred due to the inherent limitations of voice recognition software.
Discharge Plan
Departure
Patient Disposition: Home (Routine Discharge)
Date of Disposition: 09/25/23
Time of Disposition: 20:26
Patient with high blood pressure during this ER visit?: Yes
Discharge Problem:
History of chronic alcohol use, Transient atrial fibrillation, Cirrhosis
Instructions: Atrial Fibrillation (DC), Alcohol Use Disorder (DC), BLOOD PRESSURE
Prescriptions:
No Action
No Current Medications
0
Activity Restrictions/Additional Instructions:
Call Dr. Avitia tomorrow for close follow-up
Return immediately with any progression of symptoms including change in mental status vomiting lethargy seizure fever etc.
Also return if you change your mind about getting help for your alcohol issue
Discharge Date and Time
Print Language: KUWAITI
== END 2023-09-25 20:37 | disposition home or self-care (01) ==
LOC: EMR 18:17
PROVIDERS: EMERGENCY PHYSICIAN Emergency Medicine
DX: F10.129 Alcohol abuse with intoxication, unspecified (principal); I48.91 Unspecified atrial fibrillation; K74.60 Unspecified cirrhosis of liver; K21.9 Gastro-esophageal reflux disease without esophagitis
CPT/HCPCS: 99283; 93005

== ENCOUNTER 2024-02-28 08:45 | Emergency (ER) | payer MEDICAID, SELFPAY ==
[2024-02-28 08:59] VITALS: BP 168/103
--- NOTE | 2024-02-28 09:08 | ED.GENMED ---
History of Present Illness
General
Chief Complaint: Ear Problem
Source: patient
Exam Limitations: none
Time Seen by Provider: 02/28/24 09:08
Nursing documentation reviewed up to this point in time: agreed with
History of Present Illness
History of Present Illness:
This is a 58 y/o male with pmh of GERD, alcohol use disorder, presents to the emergency department today with concerns of left ear pain and fullness for the past week. Patient reports that he decided to try to clean out the ear because of this
sensation and noticed that he had drainage of yellow and bluish fluid from the ear. He denies blood from the ear. He does note decreased hearing from the left ear. He denies any fevers or chills, nausea or vomiting, chest pain, shortness of breath,
sore throat, runny nose, cough, sinus pressure, dizziness, difficulty ambulating, feelings of vertigo. Patient has never had this happen before. Patient denies any swimming in bodies of water. He denies any history of diabetes. Patient denies trauma
to the ear. Patient denies any use of hearing aids.
Past History
Past History
ED Past Medical History: Arrthythmia and GERD
ED Past Surgical History: Orthopedic
Social History
Tobacco: Non-smoker
Alcohol: Daily
Drug: None
Personal:
Living: with family
Employment: Employed
Review of Systems
Review of Systems
All Other Systems: ROS reviewed and negative except as documented in HPI and ROS
Phy Exam
Physical Exam
Physical Exam:
General: Patient is well appearing and in no acute distress; non-toxic
Skin: Warm and dry, no rashes or lesions
Head: Normocephalic, atraumatic. No mastoid tenderness bilaterally.
Eyes: Sclera non-icteric. EOMs intact.
Ears:
LEFT--Rounded foreign body/debris noted in left ear. His tragus is tender when pressed. Once foreign body was removed, he was noted to have erythema and swelling of the external ear canal with serous discharge and yellow/white debris noted in canal,
TM unable to be visualized however no blood noted.
RIGHT-- TM intact with no erythema/bulging, no fluid behind the TM. No inflammation of erythema of the external ear canal.
Cardiac: Regular rate
Pulm: Normal respiratory effort
Neuro: CN II-XII intact, no focal neurologic deficits.
Psychiatric: Appropriate mood and affect.
Course
Vital Signs
Initial and Last Documented VS:
Initial Vital Signs
Temp Pulse Resp BP Pulse Ox
98.4 F 67 18 168/103 98
02/28/24 08:59 02/28/24 08:59 02/28/24 08:59 02/28/24 08:59 02/28/24 08:59
Last Documented Vital Signs
Temp Pulse Resp BP Pulse Ox
98.4 F 67 18 168/103 98
02/28/24 08:59 02/28/24 08:59 02/28/24 08:59 02/28/24 08:59 02/28/24 08:59
Procedures
Foreign Body Removal-Ear
Left External canal:
Tenderness: mild
Any local drainage: none
External ear canal cleaned with removal of cerumen using: irrigation
Removal of foreign body using: alligator forceps
Exam of canal after removal: otitis externa
MDM/Problems Addressed
Differential Diagnosis Includes:
see below
MDM/Problems Addressed:
NUMBER AND COMPLEXITY OF PROBLEMS ADDRESSED AT THE ENCOUNTER
� Chronic conditions affecting care: GERD, alcohol abuse
� Acute Exacerbation and/or Progression of Chronic Illness:
� Differential Diagnosis includes: otitis externa, otitis media, cerumen impaction, foreign body
AMOUNT AND/OR COMPLEXITY OF DATA TO BE REVIEWED AND ANALYZED
� I performed an independent evaluation of and my interpretation is:
Laboratory Studies: no indication for labs or imaging at this time
Other:
� Review of other/old records: reviewed discharge summary from 09/26/23, patient seen for confusion and lethargy and was treated for alcohol withdrawal protocol, no previous visits for similar symptoms
� Clinical information was obtained by an independent historian: n/a
� Prescriptions/Medications Considered but not given: n/a
� Further testing considered but not performed: n/a
RISK OF COMPLICATIONS AND/OR MORBIDITY OR MORTALITY OF PATIENT MANAGEMENT
� Social determinants of health affecting care: n/a
� Discussion with other providers: ER attending
� Escalation of care including admission/observation vs risk of discharge considered:
This is a 58 y/o male with pmh of GERD, alcohol use disorder, presents to the emergency department today with concerns of left ear pain and fullness for the past week. On physical exam, he his noted to have a foreign body in his left ear. This was
removed with irrigation/alligator forceps. It resembles a ball of cotton mixed with cerumen/debris. Once this was removed, patient noted an improved in his hearing and sensation of fullness. Canal erythematous with yellow/white debris consistent
with otitis media. Patient has no blood in ear canal, no dizziness/vertigo, no signs concerning for TM perforation. Will start on antibiotic ear drops with steroids. Advised patient to stop using cotton swabs and to schedule assessment with ENT
physician. Patient stable for discharge.
*Pulse Oximetry
Patient hypoxic: no
*Critical Care Note
Total Time (30-74mins, 75-104mins- exclusive of procedures): Not Applicable
ED Attending Note
-
Portions of this chart may have been created with voice recognition software.� Occasional wrong word or��sound alike� substitutions may have occurred due to the inherent limitations of voice recognition software.
Discharge Plan
Departure
Patient Disposition: Home (Routine Discharge)
Date of Disposition: 02/28/24
Time of Disposition: 09:46
Patient with high blood pressure during this ER visit?: Yes
Condition: Good
Discharge Problem:
Otitis externa, Foreign body in ear
Instructions: Foreign Body in Ear (DC), Outer Ear Infection (DC), BLOOD PRESSURE
Prescriptions:
New
xdynuwtp-pohmmevhy-NP 3.5-10,000-1 mg/mL-unit/mL-% drops,suspension
4 drp otic (ear) QID 7 Days Qty: 10 0RF
Referrals:
Estevan Galo MD [Active] - Call in 1-3 days for appt
Sander Nicole DO [Family Provider] -
Activity Restrictions/Additional Instructions:
Cotton and cellular debris was removed from your ear.
PLEASE STOP USING COTTON SWABS IN EAR. PLEASE DO NOT PUT ANY FOREIGN BODY INTO THE EAR.
Ear drops for your infection have been sent to your pharmacy. Please instill 4 drops into the left ear, 4 times daily for 7 days.
It is important that you follow up with an ENT physician to ensure the resolution of your symptoms.
PLEASE RETURN TO THE EMERGENCY DEPARTMENT SHOULD YOU DEVELOP BLEEDING FROM THE EAR, COMPLETE HEARING LOSS, NAUSEA AND VOMITING, CHEST PAIN, SHORTNESS OF BREATH, OR ANY OTHER SIGNS OR SYMPTOMS CONCERNING TO YOU.
Interventions
Interventions:
*Risk Screen - Suicide Last Done: 02/28/24 09:01
*General Assessment Last Done: 02/28/24 09:52
*Neglect/Abuse Screening Last Done: 02/28/24 09:01
*ED COVID-19 Vaccine History Last Done: 02/28/24 09:52
Discharge Date and Time
Print Language: RWAND[place]
[2024-02-28 09:57] VITALS: BP 175/100
== END 2024-02-28 10:24 | disposition home or self-care (01) ==
LOC: EMR 08:45
PROVIDERS: EMERGENCY PHYSICIAN Emergency Medicine; FAMILY PHYSICIAN Family Medicine
DX: H60.92 Unspecified otitis externa, left ear (principal); T16.2XXA Foreign body in left ear, initial encounter; W44.9XXA Unspecified foreign body entering into or through a natural orifice, initial encounter; F10.10 Alcohol abuse, uncomplicated; K21.9 Gastro-esophageal reflux disease without esophagitis
CPT/HCPCS: 99282

== ENCOUNTER 2024-07-16 06:22 | Day surgery (SDC) | payer OTHER, SELFPAY | END 2024-07-16 13:43 | disposition home or self-care (01) | LOC: GI 06:22 | PROVIDERS: ATTENDING PHYSICIAN Internal Medicine | DX: Z12.11 Encounter for screening for malignant neoplasm of colon (principal); D50.9 Iron deficiency anemia, unspecified; K64.8 Other hemorrhoids; K44.9 Diaphragmatic hernia without obstruction or gangrene; K75.9 Inflammatory liver disease, unspecified; I85.10 Secondary esophageal varices without bleeding; K92.2 Gastrointestinal hemorrhage, unspecified; K31.89 Other diseases of stomach and duodenum; K25.9 Gastric ulcer, unspecified as acute or chronic, without hemorrhage or perforation; K31.819 Angiodysplasia of stomach and duodenum without bleeding; K55.21 Angiodysplasia of colon with hemorrhage; D12.0 Benign neoplasm of cecum; D12.2 Benign neoplasm of ascending colon; D12.4 Benign neoplasm of descending colon | CPT/HCPCS: 45385; 45382; 43239; 88305; 88342 ==

== ENCOUNTER → 2024-10-01 12:54 | Outpatient (REF) | payer OTHER, SELFPAY | LOC: PAVMRI 12:54 | PROVIDERS: ATTENDING PHYSICIAN Internal Medicine; PRIMARYCARE PHYSICIAN Family Medicine | DX: K76.9 Liver disease, unspecified (principal); R77.2 Abnormality of alphafetoprotein | CPT/HCPCS: 74183; A9581 ==